=== PATIENT | female | born 1945 | race Caucasian/White ===

== ENCOUNTER 2016-10-16 11:31 | Inpatient (IN) ==
[2016-10-16 10:13] VITALS: BMI 26.6
--- NOTE | 2016-10-16 11:27 | History & Physical Report ---
<Latoya Delgado V - Last Filed: 10/16/16 12:55> History of Present Illness Date: 10/16/16 Chief complaint: lymphoma HPI: Lizabeth is a pleasant 70-year-old female who is admitted today for chemotherapy treatment for B-cell lymphoma. Patient has had a history of 2 different types of lymphoma. 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 In January 2015. She presented again for evaluation of a new right flank mass. 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 Reevaluation in June 2015 revealed axilla adenopathy. Biopsy at that time revealed B-cell lymphoma. She underwent a CT scan of the abdomen and pelvis on 10/01/16 showed trace cutaneous edema and lymphadenopathy in the right axilla with extensive deep mass swelling. This exam. A mass has significantly increased over the last 2 weeks and patient notes that it is now odorous and does have drainage and bleeding intermittently. Given the rapid progression of this follicular lymphoma. The hospitalist services were contacted and directly admitted patient for chemotherapy treatment. He shouldn't is at high risk to develop tumor lysis syndrome. Given this risk, she does meet criteria for inpatient admission for further evaluation and treatment. She does have multiple existing comorbidities including hypertension, hypo-thyroidism, pacemaker, history of hepatitis, and type II diabetes. Did review this morning to outpatient lab studies. WBC count 10.3, hemoglobin 11.6, hematocrit 37%, platelet count 281, neutrophils 81%. Sodium 143, potassium 4.6, BUN 10, creatinine 0.5, glucose 99. Uric acid 7.3, calcium 10.3, magnesium 1.7. LDH is elevated at 928. Review of Systems Comprehensive ROS: completed and no additional positive findings except those as stated - Musculoskeletal Musculoskeletal Comments: Right lateral and exit left pain at site of mass - Integumentary/Breasts Integumentary: Present: as per HPI - Hematologic/Lymphatic Hematologic/Lymphatic: Present: as per HPI, lymphadenopathy (Right ) [facility] Patient Stated Medical History Hypertension Type II diabetes (diet managed) Hypothyroidism Pacemaker History of hepatitis and history of shingles History of previous lymphoma-follicular center cell lymphoma-2013 History of cervical cancer in the 20s History of left leg fracture Surgical History: Tonsillectomy. Appendectomy-1979. Titanium placed in arm- 1994 Family History: Father-diabetes, dementia, in his 60s or 70s of an VT Mother-diabetes Brother with comorbidities However, the specifics are unknown - Social History Smoking status: Never smoker Substance use type: does not use Alcohol intake frequency: does not drink Housing: house Household members: family Social history: Recently moved to [place], [place] with her sister. No current PCP. Oncologist Dr. Mcfarlane Medications Home Medications Medication Instructions Recorded Confirmed Type Aspirin *EC* [Ecotrin] 1 tab PO PRN PRN 10/16/16 10/16/16 History Hydrocodone/APAP 5/325 [[place] 1 tab PO Q4-6HR PRN 10/16/16 10/16/16 History 5/325] Multivitamin [One Daily] 1 each PO DAILY 10/16/16 10/16/16 History Allergies Allergy/AdvReac Type Severity Reaction Status Date / Time No Known Allergies Allergy Verified 10/16/16 12:16 Exam Vital Signs: Pulse Rate 86 10/16/16 10:14 Respiratory Rate 16 10/16/16 10:14 Blood Pressure 137/67 10/16/16 10:14 Pulse Oximetry 97 10/16/16 10:14 Height/Weight/BMI: Height 1.5 m Weight 59.8 kg Body Mass Index 26.6 - Constitutional Present: no acute distress, well nourished, well developed - Routine HEENT Exam Eye: Present: EOMI ENT: Present: mucous membranes moist, dentition normal - Routine Neck Exam Present: full ROM - Routine Respiratory Exam Present: CTA bilaterally. Absent: wheezes - Routine Cardiovascular Exam Present: RRR, S1, S2, no murmur. Absent: murmur - Routine Abdominal Exam Present: soft, normoactive bowel sounds, non distended. Absent: tenderness - Routine Extremities Exam Present: normal capillary refill - Routine Back/Spine/Pelvis Exam Back/Spine: Present: full ROM - Routine Skin Exam Present: intact, dry, warm - Routine Neurological Exam Present: alert, oriented X3, moving all extremities - Routine Psychiatric Exam Present: normal affect, normal thought process Assessment and Plan (1) Follicular lymphoma Current visit: Yes Status: Acute (2) Encounter for chemotherapy management Current visit: Yes Status: Acute DVT Prophylaxis: SCD's Assessment and Plan: Impression Follicular lymphoma High risk for tumor lysis Encounter for chemotherapy. History of classical Hodgkin's lymphoma History of type II diabetes is currently being managed with oral intake Hypertension Pacemaker Hypothyroidism Plan Admit patient to inpatient status given her recurrent follicular lymphoma, requiring chemotherapy as well as high risk for tumor lysis syndrome. All oncology, and chemotherapy will be managed by Dr. Mcfarlane. Will monitor as needed Accu-Cheks. Patient does have a history of type II diabetes, however, says has not been on any medications since a significant weight loss. Will allow patient to have regular diet Normal saline at 50 ML per hour for gentle hydration. Zofran available as needed for nausea. Patient has been utilizing hydrocodone at home for pain control. She may have 1- 2 tabs as needed every 6 hours. SCDs to bilateral lower extremity for DVT prophylaxis Patient does request to be a full code and this orders written Discuss further orders and plan of care with attending, Dr. Lim. Sepsis Assessment - Evaluation Sepsis screening result: No Definite Risk Hospital Course Summary Disclaimer: The visit summary below is not to be considered part of the above Progress Note. Hospital Course: 10/16/16-admission Impression Follicular lymphoma High risk for tumor lysis Encounter for chemotherapy. History of classical Hodgkin's lymphoma History of type II diabetes is currently being managed with oral intake Hypertension Pacemaker Hypothyroidism Plan Admit patient to inpatient status given her recurrent follicular lymphoma, requiring chemotherapy as well as high risk for tumor lysis syndrome. All oncology, and chemotherapy will be managed by Dr. Mcfarlane. Will monitor as needed Accu-Cheks. Patient does have a history of type II diabetes, however, says has not been on any medications since a significant weight loss. Will allow patient to have regular diet Normal saline at 50 ML per hour for gentle hydration. Zofran available as needed for nausea. Patient has been utilizing hydrocodone at home for pain control. She may have 1- 2 tabs as needed every 6 hours. SCDs to bilateral lower extremity for DVT prophylaxis Patient does request to be a full code and this orders written Discuss further orders and plan of care with attending, Dr. Lim. <Tania Lim - Last Filed: 10/16/16 15:17> History of Present Illness Date: 10/16/16 [facility] Patient Stated Medical History Hepatitis Yes Shingles Yes: as a kid Chemotherapy Yes Exam Vital Signs: Pulse Rate 86 10/16/16 10:14 Respiratory Rate 16 10/16/16 10:14 Blood Pressure 137/67 10/16/16 10:14 Pulse Oximetry 97 10/16/16 10:14 Oxygen Delivery Method Room Air Height/Weight/BMI: Height 1.5 m Weight 59.8 kg Body Mass Index 26.6 Assessment and Plan (1) Follicular lymphoma Current visit: Yes Status: Acute (2) Encounter for chemotherapy management Current visit: Yes Status: Acute Resuscitation Status: Full Code Assessment and Plan: I have independently evaluated and examined this patient. I reviewed the chart, the patient's history, and the EMERGENCY DEPARTMENT PHYSICIAN/PA's documented findings as above. We discussed and formulated the assessment and plan as above with additions as below: Mrs. Banegas is a pleasant 70-year-old female with recurrent B-cell follicular lymphoma as described above. She denies recent night sweats, fevers, anorexia, or significant weight loss although may have had minor weight loss associated with recent of her . There has been progressive increase in right axillary adenopathy over the past couple of weeks with associated ulceration and drainage. Due to bulky adenopathy she's felt to be at high risk for tumor lysis with initiation of chemotherapy and is subsequently admitted for aggressive hydration with treatment. The patient is alert and in no distress at time of evaluation. Respirations nonlabored and breath sounds clear Cardiac rhythm regular [place]-sized bulky nodes in the right axilla with 2 areas of superficial ulceration with thin blood-tinged serous drainage. Matted nodes in the inferior aspect of the left axilla along healed scar. No adenopathy appreciated in the neck. Chemotherapy to be initiated per direction of Dr. Mcfarlane-plans reviewed with Dr. Mcfarlane who will see the patient in consultation. Patient requests full CODE STATUS and that her brother (? Hilton) be her alternate decision-maker. She's previously completed power of immigration attorney paperwork making him DPOA. Check TSH-no recent therapy but history of hypothyroidism. Blood pressure stable on admission. Hospital Course Summary Disclaimer: The visit summary below is not to be considered part of the above Progress Note.
[~2016-10-16 11:31] MED LIST: HYDROCODONE/APAP 5mg/325mg TABLET PO PRN; ONDANSETRON 4 MG/2 ML INJECTION IVP PRN
[2016-10-16] MEDS ORDERED: NS IV ONE ×3 (11:40→13:00)
[2016-10-16] MEDS ORDERED: RASBURICASE IV ONE ×2 (11:40→12:15)
[2016-10-16] MEDS ORDERED: ACETAMINOPHEN 325 MG TABLET PO ONE (11:45)
[2016-10-16] MEDS ORDERED: DiphenhydrAMINE 50 MG/ML INJECTION IVP ONE (11:45)
[2016-10-16] MEDS ORDERED: DEXAMETHASONE INJ 10 MG in NS 50 ML IVP ONE (11:45)
[2016-10-16] MEDS ORDERED: PALONOSETRON 0.25 MG/5 ML INJECTION IV ONE (11:45)
[2016-10-16] MEDS: NS 1,000 ML IV SCH (11:48)
[2016-10-16] MEDS ORDERED: DiphenhydrAMINE 50 MG/ML INJECTION IVP PRN (12:07)
[2016-10-16] MEDS ORDERED: HYDROCORTISONE SOD SUCC 100mg/2ml INJECTION IVP PRN (12:09)
[2016-10-16] MEDS ORDERED: METHYLPREDNISOLONE SOD SUCC 125mg/2ml INJECTION IVP PRN (12:10)
[2016-10-16] MEDS ORDERED: BENDAMUSTINE IV ONE (13:00)
[2016-10-16] MEDS ORDERED: NS IV SCH (13:30)
[2016-10-16] MEDS ORDERED: RITUXIMAB IV SCH (13:30)
--- NOTE | 2016-10-16 17:43 | Consultation ---
DATE OF CONSULTATION 10/16/2016 CHIEF COMPLAINT Lymphoma. HISTORY OF PRESENT ILLNESS This is a 69-year-old female patient with history of two kinds of lymphoma. She was initially diagnosed with Hodgkin's lymphoma involving the spleen and bone marrow. She was successfully treated with ABVD from August 2013 to June 2014. She is in remission. A repeat bone marrow showed negative for lymphoma. She was also diagnosed with cutaneous follicular lymphoma involving the lower back on the right side. She was treated with excision and four cycles of rituximab in November 2013. However, her disease has come back with involvement of axillary lymph nodes. The follicular lymphoma was CD20 positive, CD10 positive, Bcl-2 positive, with a Ki-67 70%. A recent PET scan showed very advanced disease with extensive lymphadenopathy in the chest, abdomen, axillae. The patient was not able to go for biopsy. She has delayed her treatment for months to care for her who recently . I did repeat a bone marrow aspiration and biopsy last month and it came back negative for lymphoma. The patient presented with generalized weakness and fatigued easily. Restaging CT scan of the abdomen and pelvis on 10/01/2016 showed cutaneous lymphadenopathy, retroperitoneal lymphadenopathy and extensive lymphatic masses in the axillae with the largest measuring 11.8 x 10.2 in the right axilla. Multiple enlarged nodes present in the mediastinum. Bilateral pleural effusions. The bone marrow was negative. The patient admitted for the first cycle of chemotherapy, bendamustine, rituximab with rasburicase. REVIEW OF SYSTEMS CONSTITUTIONAL: No fever. No weight loss. RESPIRATORY: No shortness of breath during exertion. CARDIOVASCULAR: No chest pain. GI: No nausea or vomiting. MECHANIC RECOVERY: No history of stroke. GENITOURINARY: No urinary symptoms. PAST MEDICAL HISTORY 1. Diabetes. 2. Hypertension. PHYSICAL EXAMINATION VITAL SIGNS: Stable. Not in acute distress. PERFORMANCE STATUS: ECOG 2. LYMPH SYSTEM: Generalized lymphadenopathy, massive in the axillae with the largest mass in the right axilla with ulceration. There are multiple large lymph nodes in the left axilla. Inguinal adenopathy present. LUNGS: Reduced air entry at the bases. CARDIOVASCULAR: No murmur. No JVD. ABDOMEN: No organomegaly or masses. Bowel sounds are positive. EXTREMITIES: No edema. MECHANIC RECOVERY: No focal neurologic deficit. SKIN: Subcutaneous nodules in the lower back on the right side. LABORATORY CBC unremarkable. Uric acid 7.3. Creatinine 0.5. LDH elevated. FAMILY HISTORY Noncontributory. SOCIAL HISTORY She lives with her sister. She is a nonsmoker. ASSESSMENT 1. 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 Initially the patient was diagnosed with stage IIAE, treated with excision of subcutaneous mass followed by four cycles of rituximab in 2013. Now with progressive bulky disease. 2. History of classical Hodgkin's lymphoma involving bone marrow and was treated successfully with ABVD in 2013. She is in remission. 3. Remote history of cervical cancer. 4. The patient is considered at high risk for tumor lysis syndrome. RECOMMENDATION/PLAN 1. Second-line chemotherapy, bendamustine plus rituximab with rasburicase to prevent tumor lysis. 2. Hydration. 3. Will monitor electrolytes very closely and uric acid. 4. Neulasta following chemotherapy. MTDD
[2016-10-17] MEDS ORDERED: ACETAMINOPHEN 325 MG TABLET PO PRN (09:33)
[2016-10-17] MEDS: NS 1,000 ML IV SCH ×3 (11:12→22:03)
--- NOTE | 2016-10-17 11:23 | Progress Note ---
<Latoya Delgado V - Last Filed: 10/17/16 11:19> Subjective: Lizabeth is seen this morning in follow-up. She has been moved to room 143, to be closer to the nurse's station as she reports some mild confusion. Currently on examination, she is breathing comfortably on room air with saturations 93-94% . Nursing does report that overnight. They did place her on 1 liter, however, she has maintained adequately while awake today. Nursing reports she was initially somewhat confused. They can that she was in [place], which is where she recently moved with her sister. On exam, she does complain of having some right-sided and flank discomfort at site of her previous cutaneous follicular lymphoma site. She also complains of having continued pain in the right axilla at current site of tumor. Vital sings normal. No focal deficits noted. Objective Vital signs: Temperature 96.6 F L 10/17/16 08:00 Pulse Rate 98 10/17/16 08:00 Respiratory Rate 20 10/17/16 08:00 Blood Pressure 143/71 H 10/17/16 08:00 Pulse Oximetry 92 10/17/16 08:00 Oxygen Delivery Method Nasal Cannula Oxygen Flow Rate 1 Height/Weight/BMI: Height 1.5 m Weight 61.8 kg Body Mass Index 26.6 - Constitutional Present: no acute distress, well nourished, well developed - Routine HEENT Exam Eye: Present: EOMI ENT: Present: mucous membranes moist, dentition normal - Routine Respiratory Exam Present: CTA bilaterally. Absent: wheezes - Routine Cardiovascular Exam Present: RRR, S1, S2. Absent: murmur - Routine Abdominal Exam Present: soft, normoactive bowel sounds, non distended. Absent: tenderness - Routine Extremities Exam Present: full ROM, normal capillary refill - Routine Back/Spine/Pelvis Exam Back/Spine: Present: full ROM - Routine Skin Exam Present: intact, dry, warm Comments: lymphoma wound to right axilla - Routine Neurological Exam Present: alert, CN II-XII intact, moving all extremities. Absent: motor deficit , nystagmus, facial asymmetry Initially confused regarding present location - Routine Lymphatic Exam Lymphatic: Absent: adenopathy - Routine Psychiatric Exam Present: cooperative Results - Labs CBC & Chem 7: 10/17/16 04:39 10/17/16 04:39 Assessment and Plan (1) Follicular lymphoma Current visit: Yes Status: Acute (2) Encounter for chemotherapy management Current visit: Yes Status: Acute Assessment and Plan: 10/17/16 Noted some mild confusion. Exact etiology is unclear. Clearly multifactorial, new medication. She is received including Benadryl, steroids, chemotherapy versus environmental changes. Reviewed Tumor lysis syndrome risk factors. All labs including, serum potassium , phosphorus, calcium, creatinine and uric acid remained normal. Continue with all oncology orders and chemotherapy management as per Dr. Mcfarlane. Monitor for any evidence of hypoxia. Nursing said she did use 1 liter overnight. However, has not required any oxygen today. Blood pressures have been stable 140s over 70s. Patient is afebrile. Will discuss confusion with oncology team as well as attending, Dr. Roldan. Recheck CBC and BMP tomorrow morning to follow blood counts, renal function, electrolytes. Sepsis Assessment - Evaluation Sepsis screening result: No Definite Risk Hospital Course Summary Disclaimer: The visit summary below is not to be considered part of the above Progress Note. Hospital Course: 10/16/16-admission Impression Follicular lymphoma High risk for tumor lysis Encounter for chemotherapy. History of classical Hodgkin's lymphoma History of type II diabetes is currently being managed with oral intake Hypertension Pacemaker Hypothyroidism Plan Admit patient to inpatient status given her recurrent follicular lymphoma, requiring chemotherapy as well as high risk for tumor lysis syndrome. All oncology, and chemotherapy will be managed by Dr. Mcfarlane. Will monitor as needed Accu-Cheks. Patient does have a history of type II diabetes, however, says has not been on any medications since a significant weight loss. Will allow patient to have regular diet Normal saline at 50 ML per hour for gentle hydration. Zofran available as needed for nausea. Patient has been utilizing hydrocodone at home for pain control. She may have 1- 2 tabs as needed every 6 hours. SCDs to bilateral lower extremity for DVT prophylaxis Patient does request to be a full code and this orders written Discuss further orders and plan of care with attending, Dr. Lim. 10/17/16 Noted some mild confusion. Exact etiology is unclear. Clearly multifactorial, new medication. She is received including Benadryl, steroids, chemotherapy versus environmental changes. Reviewed Tumor lysis syndrome risk factors. All labs including, serum potassium , phosphorus, calcium, creatinine and uric acid remained normal. Continue with all oncology orders and chemotherapy management as per Dr. Mcfarlane. Monitor for any evidence of hypoxia. Nursing said she did use 1 liter overnight. However, has not required any oxygen today. Blood pressures have been stable 140s over 70s. Patient is afebrile. Will discuss confusion with oncology team as well as attending, Dr. Roldan. Recheck CBC and BMP tomorrow morning to follow blood counts, renal function, electrolytes. <JamarWhitney - Last Filed: 10/17/16 14:10> Objective Vital signs: Temperature 98.0 F 10/17/16 12:00 Pulse Rate 92 10/17/16 12:00 Respiratory Rate 20 10/17/16 12:00 Blood Pressure 137/68 10/17/16 12:00 Pulse Oximetry 93 10/17/16 12:00 Oxygen Delivery Method Room Air Oxygen Flow Rate 1 Height/Weight/BMI: Height 1.5 m Weight 61.8 kg Body Mass Index 26.6 Results - Labs CBC & Chem 7: 10/17/16 04:39 10/17/16 04:39 Assessment and Plan (1) Follicular lymphoma Current visit: Yes Status: Acute (2) Encounter for chemotherapy management Current visit: Yes Status: Acute DVT Prophylaxis: SCD's Assessment and Plan: 10/17/2016-I reviewed this chart, the patient history, and the TELESCOPE OPERATOR's/PA's documented findings as above. We discussed and formulated the assessment and plan as above with the additions below. I've seen and examined the patient independently. Patient is seen in her room accompanied by her nurse. She complains of pain in the right axilla about a 4 on a scale of 1-10. She also has some pain in her right side due to an old cancers tumor that was surgically resected. She denies any other pain. She denies shortness of breath at this time. She denies nausea or vomiting. She had a hard movement this morning and her nurse gave her some milk of magnesia afterwards. She was moved to a room closer to the nurses station because of some confusion. I did call the patient's sister and she stated that the patient has had problems with her memory for quite a while and that was the reason that she moved in with her sister. Her sister does not know the exact diagnosis but they suspect Alzheimer's dementia because of a family history. The patient's sister does not know if she has had evaluation for her confusion in the past. On exam the patient is alert and in no acute distress. She does not know the town but knows it's not [place] or [place]. She thought it was December or January. She knew the year old because she had looked up the month on her phone. She has no focal neurologic deficits on exam. Neck is supple. She denies headache. Chest is clear to auscultation. Cardiovascular reveals a regular rate and rhythm. Abdomen is soft and nontender. Extremities reveal edema of the right upper extremity and mild edema of the right lower extremity. She has a large mass in the right axilla with ulceration and recent drainage. SCDs are in place. Skin is warm and dry and without rashes other than the open lesion in her right axilla. Overall, the patient appears to be tolerating initiation of chemotherapy well. Lab was reviewed today and is essentially normal. Confusion is chronic and most likely dementia. The patient has not had an evaluation for her dementia, she would benefit from testing her B-12 level, TSH and CT head without contrast, most likely his outpatient. I discussed this with LAUREN Duffy with oncologist and she will see if this workup has been done. We'll check hemoglobin A1c regarding diabetes. Blood sugars appear to be fairly well controlled off of medication. Hospital Course Summary Disclaimer: The visit summary below is not to be considered part of the above Progress Note.
[2016-10-17] MEDS ORDERED: DEXAMETHASONE INJ 10 MG in NS 50 ML IVP ONE (11:45)
[2016-10-17] MEDS ORDERED: NS IV ONE ×2 (12:15→13:00)
[2016-10-17] MEDS ORDERED: RASBURICASE IV ONE (12:15)
[2016-10-17] MEDS ORDERED: BENDAMUSTINE IV ONE (13:00)
[2016-10-17] MEDS: SALINE FLUSH 10ml SYRINGE IV PRN ×2 (13:03→13:44)
--- NOTE | 2016-10-17 14:13 | Progress Note ---
Oncology Subjective Oriented to person. Could not name place-knows she is in a hospital. Could not give today's date or current president. Pleasant. Anxious to return home. Denies pain-intermittent "sore" and points to right lower back. General: No fever, no night sweats Eyes: No redness, no pain, no diplopia ENT: No mouth sores, no trouble swallowing Cardiac: No chest pain no palpitations Pulmonary: No cough, no shortness of breath, no wheezing Abdomen: No pain, no nausea vomiting, no diarrhea or constipation : No urgency, frequency, dysuria, or hematuria Musculoskeletal: lower back pain Neurological: No headaches, no focal weakness. Disoriented to place/time Skin: Open wound right axilla Psychiatric: No anxiety, no depression <Linda Sheffield - 10/17/16 15:14> Exam Vital signs: Temperature 97.7 F 10/17/16 14:54 Pulse Rate 75 10/17/16 14:54 Respiratory Rate 24 10/17/16 14:54 Blood Pressure 146/79 H 10/17/16 14:54 Pulse Oximetry 94 10/17/16 14:54 Oxygen Delivery Method Room Air Oxygen Flow Rate 1 <AlexandraMiguelito D - 10/17/16 17:58> Temperature 98.0 F 10/17/16 12:00 Pulse Rate 92 10/17/16 12:00 Respiratory Rate 20 10/17/16 12:00 Blood Pressure 137/68 10/17/16 12:00 Pulse Oximetry 93 10/17/16 12:00 Oxygen Delivery Method Room Air Oxygen Flow Rate 1 <Linda Sheffield - 10/17/16 15:09> - Constitutional no acute distress, well nourished, well developed <Linda Sheffield - 10/17/16 15:09> - Routine HEENT Exam Head: Present: normocephalic. Absent: facial swelling <Linda Sheffield - 10/17 15:09> Eye: Present: EOMI <Linda Sheffield - 10/17/16 15:09> ENT: Present: mucous membranes moist <Linda Sheffield - 10/17/16 15:09> - Routine Neck Exam Present: supple. Absent: lymphadenopathy <Linda Sheffield - 10/17/16 15:09> - Routine Chest/Breast/Axilla Exam Axillae: Present: lymphadenopathy (right axilla w/ large, firm mass w/ open, yellow eschar wound in center. left axillary adenopathy noted) <Linda Sheffield - 10/17/16 15:09> - Routine Respiratory Exam Present: decreased breath sounds, CTA bilaterally <Linda Sheffield - 10/17/16 15:09> Comments: diminished bibasilar <Linda Sheffield - 10/17/16 15:09> - Routine Cardiovascular Exam Present: RRR. Absent: no murmur <Linda Sheffield - 10/17/16 15:09> - Routine Abdominal Exam Present: soft, non tender. Absent: organomegaly <Linda Sheffield - 10/17/16 15 :09> - Routine Extremities Exam Absent: no edema, non tender <Linda Sheffield - 10/17/16 15:09> - Routine Back/Spine/Pelvis Exam Back/Spine: Present: paraspinal tenderness (large mass/firmness noted right lateral lumbar area) <Linda Sheffield - 10/17/16 15:09> - Routine Skin Exam Present: dry, warm, wounds. Absent: rash <Linda Sheffield - 10/17/16 15:09> Comments: circular approx. 3 cm. yellow eschar wound right mid axilla <Linda Sheffield - 10/17/16 15:09> - Routine Neurological Exam Present: alert, moving all extremities <Linda Sheffield - 10/17/16 15:09> - Routine Psychiatric Exam Present: normal affect, cooperative <Linda Sheffiled - 10/17/16 15:09> Comments: disoriented to time/place. <Linda Sheffield - 10/17/16 15:10> Oncology Results - Labs CBC & Chem 7: 10/17/16 04:39 10/17/16 04:39 <Miguelito Morris - 10/17/16 17:58> Labs: Short CBC 10/17/16 Range/Units 04:39 WBC 9.5 (4.5-11.0) T/MM3 Hgb 11.2 L (12-16) GM/DL Hct 36.2 (36-46) % Plt Count 298 (130-400) T/MM3 [facility] 10/17/16 04:39 Sodium 141 Potassium 4.0 Chloride 104 Carbon Dioxide 25 BUN 13.0 Creatinine 0.5 L Glucose 121 H Calcium 9.8 Liver Function 10/17/16 Range/Units 04:39 Albumin 3.5 (3.5-5.0) G/DL <Miguelito Morris - 10/17/16 17:58> Short CBC 10/17/16 Range/Units 04:39 WBC 9.5 (4.5-11.0) T/MM3 Hgb 11.2 L (12-16) GM/DL Hct 36.2 (36-46) % Plt Count 298 (130-400) T/MM3 [facility] 10/17/16 04:39 Sodium 141 Potassium 4.0 Chloride 104 Carbon Dioxide 25 BUN 13.0 Creatinine 0.5 L Glucose 121 H Calcium 9.8 Liver Function 10/17/16 Range/Units 04:39 Albumin 3.5 (3.5-5.0) G/DL <Linda Sheffield L - 10/17/16 14:13> Assessment and Plan Assessment and Plan: Patient examined, chart reviewed, agree with documentation by Alexandra Sheffield. Laboratory Tests 10/17/16 10/17/16 04:39 04:39 WBC 9.5 Hgb 11.2 L Plt Count 298 Neut % (Auto) 84.1 H Creatinine 0.5 L Uric Acid < 0.5 L Lactate Dehydrogenase 725 H Tolerating chemotherapy fairly well. Big problem is constipation and nausea. The nausea medicine will exacerbate the constipation. Will check uric acid and LDH in the morning to look for tumor lysis. <Miguelito Morris - 10/17/16 17:58> 1. 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 Initially the patient was diagnosed with stage IIAE, treated with excision of subcutaneous mass followed by four cycles of rituximab in 2013. Now with progressive bulky disease. 2. History of classical Hodgkin's lymphoma involving bone marrow and was treated successfully with ABVD in 2014. She is in remission. 3. Remote history of cervical cancer. 4. The patient is considered at high risk for tumor lysis syndrome. Plan Continue in-patient chemotherapy with Bendemustine + Rituximab, Elitek as directed, hydration, and close observation of counts and renal function. <Linda Sheffield - 10/17/16 15:09> - Time Spent With Patient Total time spent is greater than 50% in coordination of care (as documented) at patient's floor/unit and/or counseling patient: <Miguelito Morris - 10/17/16 17:58> Total time spent is greater than 50% in coordination of care (as documented) at patient's floor/unit and/or counseling patient: <Linda Sheffield - 10/17/16 14:13> 25 - 35 minutes <Linda Sheffield - 10/17/16 15:14> Sepsis Assessment - Evaluation Sepsis screening result: No Definite Risk <Linda Sheffield - 10/17/16 14:13>
[2016-10-18] MEDS: SALINE FLUSH 10ml SYRINGE IV PRN ×2 (04:53→15:52)
[2016-10-18] MEDS: NS 1,000 ML IV SCH (05:49)
[2016-10-18] MEDS ORDERED: NS 1,000 ML IV SCH (08:00)
--- NOTE | 2016-10-18 11:45 | Progress Note ---
<Latoya Delgado V - Last Filed: 10/18/16 11:38> Subjective: Lizabeth is seen this morning in follow up following her shower. She appears to be more mentally clear today during conversation. Reports that her right flank/ side pain is improved today. In 10 used to complain about her right axilla mass being irritating. She denies feeling short of breath or having chest pain. Objective Vital signs: Temperature 97.6 F 10/18/16 07:26 Pulse Rate 102 H 10/18/16 07:26 Respiratory Rate 20 10/18/16 07:26 Blood Pressure 143/81 H 10/18/16 07:26 Pulse Oximetry 92 10/18/16 07:26 Oxygen Delivery Method Nasal Cannula Oxygen Flow Rate 2 Height/Weight/BMI: Height 1.5 m Weight 63.5 kg Body Mass Index 26.6 - Constitutional Present: no acute distress, well nourished, well developed - Routine HEENT Exam Eye: Present: EOMI ENT: Present: mucous membranes moist, dentition normal - Routine Respiratory Exam Present: CTA bilaterally. Absent: wheezes - Routine Cardiovascular Exam Present: RRR, S1, S2. Absent: murmur - Routine Abdominal Exam Present: soft, normoactive bowel sounds, non distended. Absent: tenderness - Routine Extremities Exam Present: normal capillary refill - Routine Back/Spine/Pelvis Exam Back/Spine: Present: full ROM - Routine Skin Exam Present: dry, warm Comments: Right axilla mass with lymphadenopathy - Routine Neurological Exam Present: alert, CN II-XII intact, moving all extremities - Routine Lymphatic Exam Lymphatic: Absent: adenopathy - Routine Psychiatric Exam Present: normal affect Results - Labs CBC & Chem 7: 10/18/16 04:51 10/18/16 04:51 Assessment and Plan (1) Follicular lymphoma Current visit: Yes Status: Acute (2) Encounter for chemotherapy management Current visit: Yes Status: Acute Assessment and Plan: 10/18/2016 Overall, Lizabeth is doing well. The confusion was discussed with family and patient has had some ongoing intermittent episodes. Continue with Tylenol as needed for pain control. Overall blood sugars have been well controlled She appears to be tolerating chemotherapy well. Labs have remained stable and renal function is normal. Uric acid remains undetectable. Will speak with oncology regarding chemo schedule. Patient is hopeful for discharge today Sepsis Assessment - Evaluation Sepsis screening result: No Definite Risk Hospital Course Summary Disclaimer: The visit summary below is not to be considered part of the above Progress Note. Hospital Course: 10/16/16-admission Impression Follicular lymphoma High risk for tumor lysis Encounter for chemotherapy. History of classical Hodgkin's lymphoma History of type II diabetes is currently being managed with oral intake Hypertension Pacemaker Hypothyroidism Plan Admit patient to inpatient status given her recurrent follicular lymphoma, requiring chemotherapy as well as high risk for tumor lysis syndrome. All oncology, and chemotherapy will be managed by Dr. Mcfarlane. Will monitor as needed Accu-Cheks. Patient does have a history of type II diabetes, however, says has not been on any medications since a significant weight loss. Will allow patient to have regular diet Normal saline at 50 ML per hour for gentle hydration. Zofran available as needed for nausea. Patient has been utilizing hydrocodone at home for pain control. She may have 1- 2 tabs as needed every 6 hours. SCDs to bilateral lower extremity for DVT prophylaxis Patient does request to be a full code and this orders written Discuss further orders and plan of care with attending, Dr. Lim. 10/17/16 Noted some mild confusion. Exact etiology is unclear. Clearly multifactorial, new medication. She is received including Benadryl, steroids, chemotherapy versus environmental changes. Reviewed Tumor lysis syndrome risk factors. All labs including, serum potassium , phosphorus, calcium, creatinine and uric acid remained normal. Continue with all oncology orders and chemotherapy management as per Dr. Mcfarlane. Monitor for any evidence of hypoxia. Nursing said she did use 1 liter overnight. However, has not required any oxygen today. Blood pressures have been stable 140s over 70s. Patient is afebrile. Will discuss confusion with oncology team as well as attending, Dr. Roldan. Recheck CBC and BMP tomorrow morning to follow blood counts, renal function, electrolytes. 10/18/2016 Overall, Lizabeth is doing well. The confusion was discussed with family and patient has had some ongoing intermittent episodes. Continue with Tylenol as needed for pain control. Overall blood sugars have been well controlled She appears to be tolerating chemotherapy well. Labs have remained stable and renal function is normal. Uric acid remains undetectable. Will speak with oncology regarding chemo schedule. Patient is hopeful for discharge today <Whitney Roldan - Last Filed: 10/18/16 16:37> Objective Vital signs: Temperature 97.8 F 10/18/16 12:00 Pulse Rate 81 10/18/16 12:00 Respiratory Rate 16 10/18/16 12:00 Blood Pressure 138/80 10/18/16 12:00 Pulse Oximetry 93 10/18/16 12:00 Oxygen Delivery Method Room Air Oxygen Flow Rate 2 Height/Weight/BMI: Height 1.5 m Weight 63.5 kg Body Mass Index 26.6 Results - Labs CBC & Chem 7: 10/18/16 04:51 10/18/16 04:51 Assessment and Plan (1) Follicular lymphoma Current visit: Yes Status: Acute (2) Encounter for chemotherapy management Current visit: Yes Status: Acute Assessment and Plan: 10/18/2016 -I reviewed this chart, the patient history, and the REIMBURSEMENT AUDITOR's/PA's documented findings as above. We discussed and formulated the assessment and plan as above with the additions below.-Dr. Roldan Please see my discharge summary dictated on 10/18/2016. Hospital Course Summary Disclaimer: The visit summary below is not to be considered part of the above Progress Note.
[2016-10-18 12:05] VITALS: BP 138/80; PULSE 81; RESP 16; TEMP 97.8; O2SAT 93
--- NOTE | 2016-10-18 13:17 | Progress Note ---
Oncology Subjective Sitting in chair, alone in room. Alert to person and place. States feeling better today. Denies pain. She is eating and drinking normally. Voiding. States her bowels moved several times last evening. General: No fever, no night sweats Eyes: No redness, no pain, no diplopia ENT: No mouth sores, no trouble swallowing Cardiac: No chest pain no palpitations Pulmonary: No cough, no shortness of breath, no wheezing Abdomen: No pain, no nausea vomiting, no diarrhea or constipation : No urgency, frequency, dysuria, or hematuria Musculoskeletal: No arthritis, no myalgias Neurological: No headaches, no focal weakness Skin: + axillary wound Psychiatric: No anxiety, no depression <Linda Sheffield - 10/18/16 15:00> Exam Vital signs: Temperature 97.8 F 10/18/16 12:00 Pulse Rate 81 10/18/16 12:00 Respiratory Rate 16 10/18/16 12:00 Blood Pressure 138/80 10/18/16 12:00 Pulse Oximetry 93 10/18/16 12:00 Oxygen Delivery Method Room Air Oxygen Flow Rate 2 <Miguelito Morris D - 10/18/16 16:45> Temperature 97.8 F 10/18/16 12:00 Pulse Rate 81 10/18/16 12:00 Respiratory Rate 16 10/18/16 12:00 Blood Pressure 138/80 10/18/16 12:00 Pulse Oximetry 93 10/18/16 12:00 Oxygen Delivery Method Room Air Oxygen Flow Rate 2 <Linda Sheffield L - 10/18/16 13:19> - Constitutional no acute distress, well developed, cooperative <Linda Sheffield - 10/18/16 15: 00> - Routine HEENT Exam Head: Present: normocephalic <Linda Sheffield - 10/18/16 15:00> Eye: Present: EOMI, conjunctivae pink <Linda Sheffield - 10/18/16 15:00> ENT: Present: mucous membranes moist <Linda Sheffield - 10/18/16 15:00> - Routine Neck Exam Present: supple. Absent: lymphadenopathy, tenderness <Linda Sheffield - 15:00> - Routine Chest/Breast/Axilla Exam Axillae: Present: lymphadenopathy (bilateral, with significant lymphadenopathy right with open wound. Dressing not removed). Absent: tenderness <Linda Sheffield L - 10/18/16 15:00> - Routine Respiratory Exam Present: decreased breath sounds. Absent: wheezes, crackles <Linda Sheffield - 10/18/16 15:00> - Routine Cardiovascular Exam Present: RRR. Absent: no murmur, gallop, tachycardia <Linda Sheffield - 15:00> - Routine Abdominal Exam Present: soft, normoactive bowel sounds. Absent: tenderness <Linda Sheffield - 10/18/16 15:00> - Routine Extremities Exam Present: edema <Linda Sheffield - 10/18/16 15:00> Comments: Trace pedal edema bilateral <Linda Sheffield - 10/18/16 15:00> - Routine Back/Spine/Pelvis Exam Back/Spine: Absent: vertebral tenderness (no tenderness with today's exam. Continues with firmness around right lower lumbar area) <Linda Sheffield - 15:00> - Routine Skin Exam Present: dry, wounds (axilla, dressing intact/not removed). Absent: rash < Linda Sheffield - 10/18/16 15:00> - Routine Neurological Exam Present: alert, moving all extremities, vision grossly intact, hearing grossly intact, normal speech <Linda Sheffield - 10/18/16 15:00> - Routine Psychiatric Exam Present: normal affect, cooperative <Linda Sheffield 10/18/16 15:00> Oncology Results - Labs CBC & Chem 7: 10/18/16 04:51 10/18/16 04:51 <Miguelito Morris - 10/18/16 16:45> Labs: Short CBC 10/18/16 Range/Units 04:51 WBC 10.0 (4.5-11.0) T/MM3 Hgb 10.9 L (12-16) GM/DL Hct 35.0 L (36-46) % Plt Count 312 (130-400) T/MM3 [facility] 10/18/16 04:51 Sodium 137 Potassium 4.1 Chloride 104 Carbon Dioxide 25 BUN 15.0 Creatinine 0.5 L Glucose 127 H Calcium 9.6 <Miguelito Morris - 10/18/16 16:45> Short CBC 10/18/16 Range/Units 04:51 WBC 10.0 (4.5-11.0) T/MM3 Hgb 10.9 L (12-16) GM/DL Hct 35.0 L (36-46) % Plt Count 312 (130-400) T/MM3 [facility] [place] 10/18/16 04:51 Sodium 137 Potassium 4.1 Chloride 104 Carbon Dioxide 25 BUN 15.0 Creatinine 0.5 L Glucose 127 H Calcium 9.6 <Linda Sheffield L - 10/18/16 13:19> Assessment and Plan Assessment and Plan: Uric acid good Got Neulasta today. Will follow up with Dr. Mcfarlane tomorrow. I did not see patient today. <Miguelito Morris D - 10/18/16 16:45> 1. 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 Initially the patient was diagnosed with stage IIAE, treated with excision of subcutaneous mass followed by four cycles of rituximab in 2013. Now with progressive bulky disease. 2. History of classical Hodgkin's lymphoma involving bone marrow and was treated successfully with ABVD in 2013. She is in remission. 3. Remote history of cervical cancer. 4. The patient is considered at high risk for tumor lysis syndrome. Plan Renal function and counts stable. LDH 674 today, uric acid < 0.5. Dr. Roldan ordered venous doppler of lower extremity , negative for DVT. Reviewed infection precautions with patient, good handwashing. Let us know if has any fever, concerning signs or symptoms. Reviewed importance of good fluid intake. Plan discharge today after Neulasta. Orders placed for RTC Dr. Mcfarlane next week with labs. Patient examined, chart reviewed, agree with documentation by Alexandra Sheffield. Laboratory Tests 10/17/16 10/17/16 04:39 04:39 WBC 9.5 Hgb 11.2 L Plt Count 298 Neut % (Auto) 84.1 H Creatinine 0.5 L Uric Acid < 0.5 L Lactate Dehydrogenase 725 H Tolerating chemotherapy fairly well. Big problem is constipation and nausea. The nausea medicine will exacerbate the constipation. Will check uric acid and LDH in the morning to look for tumor lysis. <Linda Sheffield L - 10/18/16 15:00> - Time Spent With Patient Total time spent is greater than 50% in coordination of care (as documented) at patient's floor/unit and/or counseling patient: <Miguelito Morris - 10/18/16 16:45> Total time spent is greater than 50% in coordination of care (as documented) at patient's floor/unit and/or counseling patient: <Linda Sheffield - 10/18/16 13:19> 25 - 35 minutes <Linda Sheffield - 10/18/16 15:00> Sepsis Assessment - Evaluation Sepsis screening result: No Definite Risk <Linda Sheffield - 10/18/16 13:19>
--- NOTE | 2016-10-18 13:25 | Discharge Instructions ---
Discharge Plan - Med Rec/Dispo Prescriptions: No Action Aspirin *EC* [Ecotrin] 1 tab PO PRN PRN PRN Reason: Pain Hydrocodone/APAP 5/325 [[place] 5/325] 1 tab PO Q4-6HR PRN PRN Reason: Pain Multivitamin [One Daily] 1 each PO DAILY Discharge Instructions/Outpatient Orders: Consulting Provider Discharge Instructions Location: Determined By Patient
--- NOTE | 2016-10-18 13:29 | Discharge Instructions ---
Discharge Plan - Med Rec/Dispo Referrals/Follow Up: Kylie Mcfarlane MD [Physician] - (Please schedule f/u appointment with Dr. Mcfarlane for Friday10/23/2016 with CBC,CMP, LDH, and uric acid) Prescriptions: No Action Aspirin *EC* [Ecotrin] 1 tab PO PRN PRN PRN Reason: Pain Hydrocodone/APAP 5/325 [[place] 5/325] 1 tab PO Q4-6HR PRN PRN Reason: Pain Multivitamin [One Daily] 1 each PO DAILY Discharge Instructions/Outpatient Orders: Consulting Provider Discharge Instructions Location: Determined By Patient
[2016-10-18] MEDS ORDERED: GI COCKTAIL 30 ML PO ONE (14:44)
--- NOTE | 2016-10-18 15:02 | Ultrasound Report ---
Indication: edematous leg, lymphoma, rule out dvt PROCEDURE: US venous doppler LE RT: Encounter: Initial Comparison: None Technique: Color Doppler duplex and grayscale sonographic imaging of the right lower extremity was performed. Findings: There is no evidence for acute deep venous thrombosis in the right thigh. Specifically, serial graded compression was performed from the inguinal ligament to the popliteal bifurcation, on the right thigh, demonstrating appropriate compressibility of the deep venous system. In addition, color and pulsed Doppler demonstrate appropriate spontaneous flow, variation with respiration, and augmentation with calf compression. At the ankle, normal flow is identified in the posterior tibial veins; these vessels are also normal in caliber. Enlarged lymph nodes seen in the right groin. Impression: No evidence of acute DVT in the right lower limb. .
--- NOTE | 2016-10-18 15:14 | Discharge Instructions ---
Discharge Plan - Med Rec/Dispo Referrals/Follow Up: Kylie Mcfarlane MD [Physician] - (Please schedule f/u appointment with Dr. Mcfarlane for Friday10/23/2016 with CBC,CMP, LDH, and uric acid) [place] Instructions: Hodgkin Lymphoma (DC) Additional Instructions: It is important to establish with a PCP in the near future. Prescriptions: New Acetaminophen [Tylenol] 325 - 650 mg PO Q5H PRN tablet PRN Reason: Discomfort Hydrocodone/APAP 5/325 [[place] 5/325] 1 tab PO Q6H PRN #10 tab PRN Reason: Pain Continue Aspirin *EC* [Ecotrin] 1 tab PO PRN PRN PRN Reason: Pain Multivitamin [One Daily] 1 each PO DAILY Discontinued Hydrocodone/APAP 5/325 [[place] 5/325] 1 tab PO Q4-6HR PRN PRN Reason: Pain Discharge Instructions/Outpatient Orders: Consulting Provider Discharge Instructions Location: Determined By Patient Final Provider Discharge Instructions Location: Determined By Patient - Disposition 01 Discharged Home, Self-Care
[2016-10-18] MEDS ORDERED: PEGFILGRASTIM 6 MG/0.6 ML INJECTION SQ ONE (15:30)
--- NOTE | 2016-10-18 16:29 | Discharge Summary ---
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 History of classic Hodgkin's lymphoma Probable dementia, possibly Alzheimer's History of diabetes and hypertension that have resolved after weight loss Right lower extremity edema, likely lymphedema with lymph nodes in right groin. Patient had a venous Doppler negative for DVT. - Laboratory Labs: 10/18/16 04:51 10/18/16 04:51 LDH 674 on discharge. TSH 2.25 Hemoglobin A1c 5.6 Uric acid less than 0.5 - Radiology Radiology: Venous Doppler right leg negative for DVT History of Present Illness HPI: Lizabeth is a pleasant 70-year-old female who is admitted today for chemotherapy treatment for B-cell lymphoma. Patient has had a history of 2 different types of lymphoma. 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 In January 2015. She presented again for evaluation of a new right flank mass. 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 Reevaluation in June 2015 revealed axilla adenopathy. Biopsy at that time revealed B-cell lymphoma. She underwent a CT scan of the abdomen and pelvis on 10/01/16 showed trace cutaneous edema and lymphadenopathy in the right axilla with extensive deep mass swelling. This exam. A mass has significantly increased over the last 2 weeks and patient notes that it is now odorous and does have drainage and bleeding intermittently. Given the rapid progression of this follicular lymphoma. The hospitalist services were contacted and directly admitted patient for chemotherapy treatment. He shouldn't is at high risk to develop tumor lysis syndrome. Given this risk, she does meet criteria for inpatient admission for further evaluation and treatment. She does have multiple existing comorbidities including hypertension, hypo-thyroidism, pacemaker, history of hepatitis, and type II diabetes. Did review this morning to outpatient lab studies. WBC count 10.3, hemoglobin 11.6, hematocrit 37%, platelet count 281, neutrophils 81%. Sodium 143, potassium 4.6, BUN 10, creatinine 0.5, glucose 99. Uric acid 7.3, calcium 10.3, magnesium 1.7. LDH is elevated at 928. Objective Vital signs: Temperature 97.8 F 10/18/16 12:00 Pulse Rate 81 10/18/16 12:00 Respiratory Rate 16 10/18/16 12:00 Blood Pressure 138/80 10/18/16 12:00 Pulse Oximetry 93 10/18/16 12:00 Oxygen Delivery Method Room Air Oxygen Flow Rate 2 Height/Weight/BMI: Height 1.5 m Weight 63.5 kg Body Mass Index 26.6 Hospital Course This is a general summary of the patient's hospital course. For more details refer to the complete medical record. Hospital course: 10/16/16-admission Impression Follicular lymphoma, with large bulky mass in the right axilla with erosion through the skin and drainage. High risk for tumor lysis Encounter for chemotherapy. History of classical Hodgkin's lymphoma History of type II diabetes is currently being managed with oral intake Hypertension Pacemaker Hypothyroidism On the day of discharge the patient was alert and in no acute distress. Chest is clear to auscultation. Cardio vascular reveals a regular rate and rhythm. Abdomen is soft and nontender. Extremities reveal edema of the right lower extremity. No edema of the left lower extremity. She has a Mepilex dressing over the right axillary mass The patient was admitted on 10/16/2016 for initiation of chemotherapy for lymphoma. She was at high risk for tumor lysis syndrome and therefore needed IV fluids and close monitoring. Fortunately, the patient did well with chemotherapy. She was noted to have some memory difficulties. On questioning the patient's sister and Dr. Mcfarlane, this is been chronic for quite some time. It is unknown if she has had a workup for her memory difficulties. TSH was normal this hospitalization. She may benefit from outpatient B-12 level testing and possible CT head if not done in the past 1 year or so. The patient was also noted to have right lower extremity edema and a venous Doppler was negative for DVT. Edema is likely secondary to lymphedema from lymphoma. She does have lymphadenopathy in the right groin. Regarding the patient's large axillary mass with drainage, wound and skin consult was obtained and they did recommend a Mepilex dressing to be changed every 2-3 days. On 10/18/2016 was felt that the patient was stable for discharge to home with her sister. She can continue on her usual home medications. She received a dose of Neulasta prior to discharge. She needs to follow-up with Dr. Mcfarlane next week and have lab work done. We did recommend that she establish with a primary care physician. Consider further workup for dementia if it is not been done in the past. Greater than 35 minutes was spent on dismissal day. Time spent with patient: discharge greater than 30 minutes Discharge Plan - Med Rec/Dispo Referrals/Follow Up: Kylie Mcfarlane MD [Physician] - (Please schedule f/u appointment with Dr. Mcfarlane for Friday10/23/2016 with CBC,CMP, LDH, and uric acid) [place] Instructions: Hodgkin Lymphoma (DC) Additional Instructions: It is important to establish with a PCP in the near future. Prescriptions: New Acetaminophen [Tylenol] 325 - 650 mg PO Q5H PRN tablet PRN Reason: Discomfort Hydrocodone/APAP 5/325 [[place] 5/325] 1 tab PO Q6H PRN #10 tab PRN Reason: Pain Continue Aspirin *EC* [Ecotrin] 1 tab PO PRN PRN PRN Reason: Pain Multivitamin [One Daily] 1 each PO DAILY Discontinued Hydrocodone/APAP 5/325 [[place] 5/325] 1 tab PO Q4-6HR PRN PRN Reason: Pain Discharge Instructions/Outpatient Orders: Consulting Provider Discharge Instructions Location: Determined By Patient Final Provider Discharge Instructions Location: Determined By Patient - Disposition 01 Discharged Home, Self-Care
== END 2016-10-18 16:00 | disposition home or self-care (01) | DRG 847 ==
LOC: MED
PROVIDERS: ADMIT Internal Medicine; ATTEND Internal Medicine